=== PATIENT | female | born 1950 | race African-American/Black ===

== ENCOUNTER 2017-12-01 11:18 | Emergency (ER) | payer MEDICARE, OTHER ==
[~2017-12-01] VITALS: Ht 160 cm; Wt 63.6 kg
[2017-12-01] MEDS ORDERED: HYDR-4455 PO (11:28)
[2017-12-01] MEDS ORDERED: AMLO-511 PO (11:28)
[2017-12-01] MEDS ORDERED: HYDROCODONE/ACETAMINOPHEN 10-325 MG TABLET PO ONE (12:15)
[2017-12-01] MEDS ORDERED: GABA-531 PO (12:32)
[2017-12-01] MEDS ORDERED: METO50 PO (12:32)
[2017-12-01] MEDS ORDERED: MYCO360T PO (12:32)
[2017-12-01] MEDS ORDERED: TACR.5 PO (12:32)
[2017-12-01] MEDS ORDERED: FOLI1 PO (12:32)
[2017-12-01 14:00] VITALS: BP 137/73
== END 2017-12-01 14:15 | disposition home or self-care (01) ==
LOC: EDUNIT# 11:18 → EMS 11:20
DX: M25.422 Effusion, left elbow (principal); M25.522 Pain in left elbow; I10 Essential (primary) hypertension; F17.210 Nicotine dependence, cigarettes, uncomplicated; Z94.4 Liver transplant status; Z88.6 Allergy status to analgesic agent
CPT/HCPCS: 99284; 99406

== ENCOUNTER 2024-12-09 20:12 | Emergency (ER) | payer MEDICARE, OTHER ==
[~2024-12-09] VITALS: Ht 162.6 cm; Wt 56.8 kg
[~2024-12-09 20:12] MED LIST: AMLO-257 PO; FOLI-130 PO; GABA-1181 PO; HYDR-4455 PO; METO50 PO; MYCO360T PO; TACR0.5C21 PO
[2024-12-09 20:23] VITALS: TEMP 97.9
[2024-12-09 23:40] LABS: PLATELET COUNT (AUTO) 285 K/uL (150-450); RED BLOOD CELL COUNT(AUTO) 4.69 MIL/uL (4.00-5.20); RED CELL DISTRIBUTION WIDTH 14.7 % (11.5-14.5); WHITE BLOOD COUNT (AUTO) 9.2 K/uL (4.5-11.0)
[2024-12-09 23:49] LABS: CALCIUM, TOTAL 8.6 mg/dL (8.8-10.5); CREATININE 0.89 mg/dL (0.60-1.30); GLOMERULAR FILTR. RATE CALC > 60 mL/min (>60); GLUCOSE,RANDOM 86 mg/dL (70-110); SODIUM SERUM 142 mmol/L (136-145); UREA NITROGEN, BLOOD 24 mg/dL (7-18)
[2024-12-09 23:53] LABS: ASPARTATE AMINOTRANSFERASE 33.0 U/L (15-37); TOTAL PROTEIN, SERUM 7.6 g/dL (6.4-8.2)
[2024-12-10 00:01] LABS: TROPONIN I-HIGH SENSITIVITY 18 ng/L (<51)
[2024-12-10 02:35] LABS: APPEARANCE,URINE CLEAR (CLEAR); GLUCOSE, URINE (UA) TRACE mg/dL (NEGATIVE); LEUKOCYTE ESTERASE ,URINE NEGATIVE (NEGATIVE); NITRATE,URINE NEGATIVE (NEGATIVE); OCCULT BLOOD,URINE NEGATIVE (NEGATIVE); SPECIFIC GRAVITIY, URINE 1.010 (1.003-1.030)
[2024-12-10 03:01] VITALS: BP 145/64; PULSE 61; RESP 16; O2SAT 98
[2024-12-10] MEDS ORDERED: POLY17PO62 PO (04:07)
[2024-12-10] MEDS: SODIUM PHOSPHATE,MONO-DIBASIC 133 ML ENEMA PR ONE (04:15)
== END 2024-12-10 05:04 | disposition home or self-care (01) ==
LOC: EMS 20:12
DX: K59.00 Constipation, unspecified (principal); R11.0 Nausea; R39.198 Other difficulties with micturition; F17.210 Nicotine dependence, cigarettes, uncomplicated; I10 Essential (primary) hypertension; Z79.621 Long term (current) use of calcineurin inhibitor; Z88.6 Allergy status to analgesic agent; Z90.49 Acquired absence of other specified parts of digestive tract; Z94.4 Liver transplant status; Z79.624 Long term (current) use of inhibitors of nucleotide synthesis; Z79.899 Other long term (current) drug therapy; Z98.890 Other specified postprocedural states
CPT/HCPCS: 74018; 80048; 80076; 81003; 83690; 84484; 85025; 93005; 99285; 36415-L1; 36415-TC